=== PATIENT | female | born 2000 | race African-American/Black ===

== ENCOUNTER 2018-03-04 17:21 | Emergency (ER) | payer SELFPAY ==
[~2018-03-04] VITALS: Ht 172.7 cm; Wt 91.0 kg
[2018-03-04 17:34] VITALS: BP 120/71; PULSE 114; RESP 18; TEMP 99.2; O2SAT 99
== END 2018-03-04 19:39 | disposition left against medical advice (07) ==
LOC: NED 17:21
DX: R42 Dizziness and giddiness (principal)
CPT/HCPCS: 99281